=== PATIENT | male | born 1970 | race Caucasian/White ===

== ENCOUNTER 2022-11-26 07:53 | Day surgery (SDC) | payer OTHER ==
[~2022-11-26] VITALS: Ht 175.3 cm; Wt 76.6 kg
[~2022-11-26 07:53] MED LIST: NS 1,000 ML IV ONE
[2022-11-26] MEDS ORDERED: propofoL 200 MG/20 ML VIAL As Ordered ONE (09:21)
[2022-11-26 09:30] VITALS: BP 123/73
== END 2022-11-26 09:40 | disposition home or self-care (01) ==
LOC: M OPP 07:53
PROVIDERS: ATTEND Internal Medicine Gastroenterology
DX: Z12.11 Encounter for screening for malignant neoplasm of colon (principal)

== ENCOUNTER → 2023-10-20 | Outpatient (CLI) | payer OTHER | LOC: M RAD 06:19 | PROVIDERS: ATTEND Physician Assistant | DX: M25.521 Pain in right elbow (principal) ==